=== PATIENT | female | born 1945 | race Caucasian/White ===

== ENCOUNTER 2019-07-26 14:02 | Emergency (ER) | payer MEDICARE ==
[~2019-07-26] VITALS: Ht 172.7 cm; Wt 73.4 kg
[2019-07-26] MEDS ORDERED: diphenhydrAMINE 50 mg/ml inj IV ONE (15:55)
[2019-07-26] MEDS ORDERED: normal saline 1000ml 1,000 ML IV ONE (15:55)
[2019-07-26] MEDS ORDERED: ondansetron/PF 4mg/2ml inj IV ONE (15:55)
[2019-07-26] MEDS ORDERED: metoclopramide 5 mg/ml inj IV ONE (15:55)
[2019-07-26 16:15] LABS: BASOPHILS # (AUTO) 0.1 X10'3 (0-0.2); BASOPHILS % (AUTO) 0.5 % (0-1); EOSINOPHILS % (AUTO) 0.2 % (0-6); HEMOGLOBIN 12.4 g/dl (12.0-16.0); LYMPHOCYTES # (AUTO) 0.8 X10'3 (1.1-4.8); MEAN CORPUSCULAR HEMOGLOBIN 28.2 PG (27.0-31.0); MEAN CORPUSCULAR HGB CONC 33.5 g/dL (33.0-36.5); MEAN CORPUSCULAR VOLUME 83.9 FL (78-98); MEAN PLATELET VOLUME 7.5 FL (7.4-10.4); MONOCYTES # (AUTO) 0.4 X10'3 (0-0.9); MONOCYTES % (AUTO) 3.7 % (2-12); NEUTROPHILS # (AUTO) 9.7 X10'3 (1.8-7.7); NEUTROPHILS % (AUTO) 88.6 % (42-75); PLATELET COUNT 143 X10'3 (140-440); RED BLOOD COUNT 4.41 X10'6 (4.20-5.60); RED CELL DISTRIBUTION WIDTH 14.7 % (11.5-14.5)
[2019-07-26 16:31] LABS: ALANINE AMINOTRANSFERASE 12 U/L (12-78); ALBUMIN 2.8 G/DL (3.4-5.0); ALBUMIN/GLOBULIN RATIO 0.7 (1.1-1.5); ALKALINE PHOSPHATASE 108 IU/L (46-116); ANION GAP 8 (8-16); ASPARTATE AMINO TRANSFERASE 28 U/L (10-37); BLOOD UREA NITROGEN 12 MG/DL (7-18); BUN/CREATININE RATIO 16.4 (6.6-38.0); CALCIUM 8.7 MG/DL (8.5-10.1); CHLORIDE 101 MMOL/L (99-107); CREATININE 0.73 MG/DL (0.40-0.90); GLUCOSE 131 MG/DL (70-104); LIPASE < 50 U/L (73-393); POTASSIUM 4.4 MMOL/L (3.5-5.1); SODIUM 135 MMOL/L (135-145); TOTAL CARBON DIOXIDE 25.8 MMOL/L (24-32); TOTAL PROTEIN 6.8 G/DL (6.4-8.2); eGFR 78 ML/MIN
[2019-07-26] MEDS ORDERED: ONDA4TAB6 PO (16:59)
[2019-07-26 18:03] VITALS: BP 114/58
== END 2019-07-26 17:50 | disposition home or self-care (01) ==
LOC: ER 14:03
DX: R11.2 Nausea with vomiting, unspecified (principal); G62.9 Polyneuropathy, unspecified; K21.9 Gastro-esophageal reflux disease without esophagitis; Z60.2 Problems related to living alone; Z79.899 Other long term (current) drug therapy
CPT/HCPCS: 36415; 80053; 83690; 85025; 96361; 96374; 96375; 99284; J1200; J2405; J2765; J7030

== ENCOUNTER 2019-07-29 09:03 | Emergency (ER) | payer MEDICARE ==
[~2019-07-29] VITALS: Ht 172.7 cm; Wt 80.0 kg
[~2019-07-29 09:03] MED LIST: ONDA4TAB6 PO
[2019-07-29 09:09] VITALS: BP 134/61
[2019-07-29] MEDS ORDERED: HYDR-4383 PO (20:28)
[2019-07-29] MEDS ORDERED: SENN-162 PO (20:28)
== END 2019-07-29 10:03 | disposition home or self-care (01) ==
LOC: ER 09:04
DX: R19.7 Diarrhea, unspecified (principal); R53.1 Weakness; R06.02 Shortness of breath; R11.10 Vomiting, unspecified; K21.9 Gastro-esophageal reflux disease without esophagitis; Z60.2 Problems related to living alone; Z79.899 Other long term (current) drug therapy
CPT/HCPCS: 99282

== ENCOUNTER 2019-07-29 15:55 | Emergency (ER) | payer MEDICARE ==
[~2019-07-29] VITALS: Ht 172.7 cm; Wt 80.0 kg
--- NOTE | 2019-07-29 18:35 | NUR ---
[place] AT FOR ASSESSMENT. PT HAS SWELLING TO RIGHT WRIST, AND LEFT KNEE. NO REPORTS OF HITTING HEAD. NO C/O NECK TENDERNESS. NO REPORTS OF LOC.
[2019-07-29] MEDS ORDERED: HYDROcodone/acetaminophen 5mg/325mg tablet PO ONE (19:10)
[2019-07-29] MEDS ORDERED: HYDR-4383 PO (20:28)
[2019-07-29] MEDS ORDERED: SENN-162 PO (20:28)
[2019-07-29 20:36] VITALS: BP 148/60
== END 2019-07-29 20:39 | disposition home or self-care (01) ==
LOC: ER 15:56
DX: S52.501A Unspecified fracture of the lower end of right radius, initial encounter for closed fracture (principal); G62.9 Polyneuropathy, unspecified; K21.9 Gastro-esophageal reflux disease without esophagitis; Z60.2 Problems related to living alone; Z79.899 Other long term (current) drug therapy; W10.9XXA Fall (on) (from) unspecified stairs and steps, initial encounter; Y93.E2 Activity, laundry; Y92.89 Other specified places as the place of occurrence of the external cause; Y99.8 Other external cause status
CPT/HCPCS: 29125; 29530; 73110; 73564; 73700; 99284

== ENCOUNTER 2019-08-14 18:28 | Inpatient (IN) | payer MEDICARE, OTHER ==
[~2019-08-14] VITALS: Ht 172.7 cm; Wt 70.0 kg
[~2019-08-14 18:28] MED LIST changes: +HYDR-4383 PO; +SENN-263 PO
--- NOTE | 2019-08-14 18:30 | NUR ---
Patient in room [facility]. I have received report from Nathalie INMAN and had the opportunity to ask questions and assume patient care.
[2019-08-14 19:25] LABS: BASOPHILS % (AUTO) 0.3 % (0-1); EOSINOPHILS % (AUTO) 0.2 % (0-6); HEMATOCRIT 35.6 % (35.0-45.0); HEMOGLOBIN 11.6 g/dl (12.0-16.0); LYMPHOCYTES # (AUTO) 0.9 X10'3 (1.1-4.8); LYMPHOCYTES % (AUTO) 6.4 % (21-51); MEAN CORPUSCULAR HEMOGLOBIN 27.1 PG (27.0-31.0); MEAN CORPUSCULAR HGB CONC 32.7 g/dL (33.0-36.5); MONOCYTES # (AUTO) 0.8 X10'3 (0-0.9); MONOCYTES % (AUTO) 5.9 % (2-12); NEUTROPHILS # (AUTO) 11.7 X10'3 (1.8-7.7); NEUTROPHILS % (AUTO) 87.2 % (42-75); PLATELET COUNT 135 X10'3 (140-440); RED CELL DISTRIBUTION WIDTH 16.3 % (11.5-14.5); WHITE BLOOD COUNT 13.5 X10'3 (4.5-11.0)
[2019-08-14 19:32] LABS: D-DIMER 4.16 MG/L FEU (0-0.50)
[2019-08-14 19:33] LABS: ALANINE AMINOTRANSFERASE 12 U/L (12-78); ALBUMIN 2.5 G/DL (3.4-5.0); ALBUMIN/GLOBULIN RATIO 0.6 (1.1-1.5); ALKALINE PHOSPHATASE 135 IU/L (46-116); ANION GAP 8 (8-16); ASPARTATE AMINO TRANSFERASE 63 U/L (10-37); BILIRUBIN,TOTAL 0.7 MG/DL (0.1-1.0); BLOOD UREA NITROGEN 11 MG/DL (7-18); BUN/CREATININE RATIO 11.2 (6.6-38.0); CALCIUM 8.1 MG/DL (8.5-10.1); CHLORIDE 95 MMOL/L (99-107); CREATININE 0.98 MG/DL (0.40-0.90); GLUCOSE 148 MG/DL (70-104); POTASSIUM 3.9 MMOL/L (3.5-5.1); SODIUM 129 MMOL/L (135-145); TOTAL CARBON DIOXIDE 25.7 MMOL/L (24-32); TOTAL PROTEIN 6.5 G/DL (6.4-8.2); eGFR 56 ML/MIN
[2019-08-14] MEDS ORDERED: morphine 4 MG/ML inj SYRINge IV ONE (19:35)
[2019-08-14] MEDS ORDERED: ondansetron/PF 4mg/2ml inj IV ONE (19:35)
[2019-08-14] MEDS ORDERED: normal saline 1000ML IV soln IVB ONE (19:35)
[2019-08-14] MEDS ORDERED: heparin 25,000 UNIT/250ml bag 250 ML IV SCH (19:58)
[2019-08-14] MEDS ORDERED: heparin 10,000 units/1 ML INJ IV PRN (20:00)
[2019-08-14] MEDS ORDERED: heparin 10,000 units/1 ML INJ IV ONE ×2 (20:00)
[2019-08-14] MEDS ORDERED: iohexol 350MG/ML 100ml bottle IV ONE (20:05)
--- NOTE | 2019-08-14 21:02 | NUR ---
AMADO CHINO ORDERED TO HOLD HEPARIN DUE TO CT FINDINGS
[2019-08-14] MEDS ORDERED: magnesium 2GM in 50ml NS 50 ML IV PRN (21:15)
[2019-08-14] MEDS ORDERED: acetaminophen 325mg tablet PO PRN (21:15)
[2019-08-14] MEDS ORDERED: magnesium 4gm in 100ml NS 100 ML IV PRN (21:15)
[2019-08-14] MEDS ORDERED: magnesium Cl slow-release 64mg tablet PO PRN (21:15)
[2019-08-14] MEDS ORDERED: ondansetron/PF 4mg/2ml inj IV PRN (21:15)
[2019-08-14] MEDS ORDERED: potassium Cl 20 mEq SR tablet PO PRN (21:15)
[2019-08-14] MEDS ORDERED: potassium CL 10mEq/100ml bag 100 ML IV PRN ×2 (21:15)
--- NOTE | 2019-08-14 22:00 | NUR ---
Received patient via [employer]. VSS. No complaint of pain or respiratory distress. Assisted to bathroom with 2 person assist. Assisted to bed. Will continue to monitor.
[2019-08-14] MEDS ORDERED: METF500T PO (23:20)
[2019-08-14] MEDS ORDERED: SYN0.088T PO (23:20)
[2019-08-14] MEDS ORDERED: LACT1CAP60 PO (23:20)
[2019-08-14] MEDS ORDERED: ASPI81TA52 PO (23:20)
[2019-08-14] MEDS ORDERED: CLOP75TA15 PO (23:20)
[2019-08-14] MEDS ORDERED: LISI-600 PO (23:20)
[2019-08-14] MEDS ORDERED: SERT-153 PO (23:20)
[2019-08-14] MEDS ORDERED: ATEN25TA PO (23:20)
[2019-08-14] MEDS ORDERED: CYAN1TAB41 PO (23:20)
[2019-08-14] MEDS ORDERED: ATOR40TA PO (23:20)
[2019-08-14] MEDS ORDERED: CHOL500061 PO (23:20)
[2019-08-14] MEDS: HYDROcodone/acetaminophen 5mg/325mg tablet PO PRN (23:43)
[2019-08-15] MEDS: piperacillin/tazo 3.375gm/50ml 50 ML IV SCH ×3 (00:03→17:25)
[2019-08-15] MEDS: aspirin 81mg tablet.DR PO SCH ×2 (00:13→07:59)
[2019-08-15] MEDS: sertraline 50mg tablet PO SCH ×2 (00:13→08:06)
[2019-08-15] MEDS: clopidogrel 75mg tablet PO SCH ×2 (00:13→07:59)
[2019-08-15] MEDS: morphine 2 MG/ML inj. syringe IV PRN ×3 (02:34→14:54)
[2019-08-15 05:17] LABS: ANION GAP 6 (8-16); BLOOD UREA NITROGEN 8 MG/DL (7-18); BUN/CREATININE RATIO 10.7 (6.6-38.0); CALCIUM 8.1 MG/DL (8.5-10.1); CHLORIDE 98 MMOL/L (99-107); CREATININE 0.75 MG/DL (0.40-0.90); GLUCOSE 92 MG/DL (70-104); POTASSIUM 3.5 MMOL/L (3.5-5.1); SODIUM 131 MMOL/L (135-145); TOTAL CARBON DIOXIDE 27.3 MMOL/L (24-32); eGFR 76 ML/MIN
[2019-08-15 05:18] LABS: ALBUMIN 2.1 G/DL (3.4-5.0); MAGNESIUM 1.5 MG/DL (1.5-2.4)
[2019-08-15 05:38] LABS: BASOPHILS % (AUTO) 0.2 % (0-1); EOSINOPHILS % (AUTO) 0.1 % (0-6); HEMATOCRIT 33.2 % (35.0-45.0); HEMOGLOBIN 10.9 g/dl (12.0-16.0); LYMPHOCYTES # (AUTO) 0.7 X10'3 (1.1-4.8); LYMPHOCYTES % (AUTO) 5.2 % (21-51); MEAN CORPUSCULAR HEMOGLOBIN 27.4 PG (27.0-31.0); MEAN CORPUSCULAR HGB CONC 32.8 g/dL (33.0-36.5); MEAN CORPUSCULAR VOLUME 83.4 FL (78-98); MEAN PLATELET VOLUME 8.1 FL (7.4-10.4); MONOCYTES # (AUTO) 0.6 X10'3 (0-0.9); MONOCYTES % (AUTO) 5.1 % (2-12); NEUTROPHILS # (AUTO) 11.3 X10'3 (1.8-7.7); NEUTROPHILS % (AUTO) 89.4 % (42-75); PLATELET COUNT 120 X10'3 (140-440); RED BLOOD COUNT 3.97 X10'6 (4.20-5.60); RED CELL DISTRIBUTION WIDTH 15.9 % (11.5-14.5); WHITE BLOOD COUNT 12.7 X10'3 (4.5-11.0)
[2019-08-15 05:56] LABS: HEMOGLOBIN A1C 6.1 % (4.5-6.2)
[2019-08-15] MEDS ORDERED: LEVO200T8 PO (06:13)
--- NOTE | 2019-08-15 06:44 | NUR ---
Problems reprioritized. Patient report given, questions answered & plan of care reviewed with Elda INMAN.
[2019-08-15] MEDS: atorvastatin 20mg tablet PO SCH (07:59)
[2019-08-15 08:00] VITALS: BP 143/66
[2019-08-15] MEDS: K and/or MAG REPLACEMENT MC SCH ×2 (08:00→20:00)
[2019-08-15] MEDS: docusate sod 100mg capsule PO SCH ×2 (08:00→21:35)
[2019-08-15] MEDS: lisinopril 20mg tablet PO SCH ×2 (08:07→21:37)
[2019-08-15] MEDS ORDERED: FLU VACC QS2019-20 36MOS UP/PF 60 MCG/0.5 ML SYRINGE IMVAC ONE (10:00)
[2019-08-15] MEDS: atenolol 25mg tablet PO SCH ×2 (10:23→21:37)
--- NOTE | 2019-08-15 11:19 | NUR ---
Malnutrition consult: Pt states that she has been unable to eat regularly for the past month and lost over 50 pounds per ED report. Per wt hx, pt with a pt stated wt of 176 lbs 07/28 however with a chair scaled wt of 161 lbs 07/25; current scaled wt is 154 lbs. TC to pt who reports UBW of 190 lbs and states 50 lb wt loss over the last month r/t diarrhea and vomiting after PO intake. Per H&P and ED report pt reports nausea however denies vomiting. Pt states she hasn't been eating much over the last month however has been following the BRAT diet in order to thicken up stool. Pt currently NPO and endorsing a good appetite. Pt with no significant decrease in muscle strength or edema. Pt appears well developed/well nourished per ED report. Pt currently lacks a minimum of two criteria for malnutrition. Pt denies food allergies however reports lactose intolerance, d/w dietary. Pt denies any difficulties chewing or swallowing and reports no diarrhea since admit. Will continue to follow closely and further monitor qualifying criteria for malnutrition. Addendum: 08/15/19 at [address] Amended: Links added.
[2019-08-15 12:00] VITALS: BP 122/64
[2019-08-15 18:00] VITALS: BP 120/57
--- NOTE | 2019-08-15 18:28 | NUR ---
Patient in room [facility]. I have received report from Elda INMAN and had the opportunity to ask questions and assume patient care. Patient is sleeping and receiving zosyn. Will continue to monitor.
--- NOTE | 2019-08-15 18:30 | NUR ---
Problems reprioritized. Patient report given, questions answered & plan of care reviewed with Tona INMAN.
[2019-08-15] MEDS: lactobacillus rhamnosus 10,000 MMU CELLS/CAPSULE PO SCH (21:36)
[2019-08-15] MEDS: HYDROcodone/acetaminophen 5mg/325mg tablet PO PRN (21:38)
[2019-08-15] MEDS: diatr meglu/diatrizoate 30ml oral sol.-(3 dose) bottle PO SCH (21:42)
[2019-08-16] VITALS: BP 97/50
[2019-08-16] MEDS: piperacillin/tazo 3.375gm/50ml 50 ML IV SCH ×3 (01:24→16:38)
[2019-08-16] MEDS: HYDROcodone/acetaminophen 5mg/325mg tablet PO PRN ×4 (01:24→19:50)
[2019-08-16 05:07] LABS: BASOPHILS # (AUTO) 0.1 X10'3 (0-0.2); BASOPHILS % (AUTO) 0.4 % (0-1); EOSINOPHILS % (AUTO) 0.2 % (0-6); HEMATOCRIT 32.3 % (35.0-45.0); HEMOGLOBIN 10.8 g/dl (12.0-16.0); LYMPHOCYTES % (AUTO) 6.7 % (21-51); MEAN CORPUSCULAR HEMOGLOBIN 27.5 PG (27.0-31.0); MEAN CORPUSCULAR HGB CONC 33.3 g/dL (33.0-36.5); MEAN CORPUSCULAR VOLUME 82.6 FL (78-98); MONOCYTES # (AUTO) 0.8 X10'3 (0-0.9); MONOCYTES % (AUTO) 5.2 % (2-12); NEUTROPHILS # (AUTO) 12.9 X10'3 (1.8-7.7); NEUTROPHILS % (AUTO) 87.5 % (42-75); PLATELET COUNT 140 X10'3 (140-440); RED BLOOD COUNT 3.91 X10'6 (4.20-5.60); RED CELL DISTRIBUTION WIDTH 15.9 % (11.5-14.5); WHITE BLOOD COUNT 14.8 X10'3 (4.5-11.0)
[2019-08-16 05:11] LABS: ALBUMIN 1.9 G/DL (3.4-5.0); ANION GAP 7 (8-16); BLOOD UREA NITROGEN 8 MG/DL (7-18); BUN/CREATININE RATIO 10.7 (6.6-38.0); CALCIUM 8.2 MG/DL (8.5-10.1); CHLORIDE 98 MMOL/L (99-107); CREATININE 0.75 MG/DL (0.40-0.90); GLUCOSE 118 MG/DL (70-104); MAGNESIUM 1.7 MG/DL (1.5-2.4); POTASSIUM 3.4 MMOL/L (3.5-5.1); SODIUM 133 MMOL/L (135-145); eGFR 76 ML/MIN
--- NOTE | 2019-08-16 06:14 | NUR ---
Problems reprioritized. Patient report given, questions answered & plan of care reviewed with Sedrick INMAN.
--- NOTE | 2019-08-16 06:45 | NUR ---
Patient in room [facility]. I have received report from HENNY SANTOS and had the opportunity to ask questions and assume patient care.
[2019-08-16 07:00] VITALS: BP 148/68
[2019-08-16] MEDS: atorvastatin 20mg tablet PO SCH (07:33)
[2019-08-16] MEDS: lactobacillus rhamnosus 10,000 MMU CELLS/CAPSULE PO SCH ×2 (07:33→19:48)
[2019-08-16] MEDS: docusate sod 100mg capsule PO SCH ×2 (07:33→19:48)
[2019-08-16] MEDS: sertraline 50mg tablet PO SCH (07:33)
[2019-08-16] MEDS: potassium Cl 20 mEq SR tablet PO PRN ×3 (07:36→16:54)
[2019-08-16] MEDS: lisinopril 20mg tablet PO SCH ×2 (07:36→19:48)
[2019-08-16] MEDS: diatr meglu/diatrizoate 30ml oral sol.-(3 dose) bottle PO SCH ×2 (07:37→10:43)
[2019-08-16] MEDS: atenolol 25mg tablet PO SCH ×2 (07:43→19:47)
[2019-08-16] MEDS: clopidogrel 75mg tablet PO SCH ×2 (07:47→16:54)
[2019-08-16] MEDS: aspirin 81mg tablet.DR PO SCH ×2 (07:47→16:54)
[2019-08-16] MEDS: K and/or MAG REPLACEMENT MC SCH ×2 (07:47→20:00)
--- NOTE | 2019-08-16 10:43 | NUR ---
Patient down to CT.
[2019-08-16] MEDS ORDERED: iohexol 300mg/ml 100ml inj. ONE (10:52)
--- NOTE | 2019-08-16 11:16 | NUR ---
PATIENT BACK TO ROOM 353 WITH NO COMPLAINTS.
[2019-08-16 12:05] VITALS: BP 95/50
--- NOTE | 2019-08-16 16:25 | NUR ---
SPOKE TO DR HOWARD PATIENT'S ASPIRIN AND PLAVIX WAS NOT GIVEN TODAY DUE TO POSSIBILITY OF PROCEDURE. ASKED DR HOWARD IF SHE WOULD LIKE FOR PATIENT TO HAVE ASPIRIN AND PLAVIX SHE HAS NOT HAD ASPRIIN AND PLAVIX YESTERDAY WELL AND SO FAR NO WORD IF PATIENT WILL BE HAVING PROCEDURE WITH DR COLBERT TODAY. DR. HOWARD STATED SHE WOULD "CALL DR. COLBERT TO SEE WHAT THE PLAN IS FIRST." HAVE NOT HEARD BACK FROM DR. HOWARD. DR HOWARD WAS PAGED.
--- NOTE | 2019-08-16 16:39 | NUR ---
DR HOWARD CALLED BACK AND STATED TO "TALK TO DR COLBERT" REGARDING IF PATIENT SHOULD BE GIVEN HER ASA AND PLAVIX FOR TODAY OR OK TO HOLD. DR DOWNING CALLED AND NO ANSWER.
--- NOTE | 2019-08-16 16:46 | NUR ---
DR COLBERT RETURNED CALL AND STATED OKAY TO GIVE PATIENT ASA AND PLAVIX FOR TODAY. WILL ADMINISTER.
--- NOTE | 2019-08-16 18:17 | NUR ---
Problems reprioritized. Patient report given, questions answered & plan of care reviewed with HENNY MCLAIN.
[2019-08-16 18:50] VITALS: BP 138/58
[2019-08-16] MEDS: normal saline 1000ml 1,000 ML IV SCH (20:30)
[2019-08-17] VITALS: BP 122/55
[2019-08-17] MEDS: piperacillin/tazo 3.375gm/50ml 50 ML IV SCH ×4 (00:02→23:48)
[2019-08-17] MEDS: HYDROcodone/acetaminophen 5mg/325mg tablet PO PRN ×4 (00:55→17:01)
[2019-08-17] MEDS: normal saline 1000ml 1,000 ML IV SCH ×2 (04:52→15:55)
[2019-08-17 05:27] LABS: ALBUMIN 1.8 G/DL (3.4-5.0); ANION GAP 6 (8-16); BLOOD UREA NITROGEN 6 MG/DL (7-18); BUN/CREATININE RATIO 9.5 (6.6-38.0); CALCIUM 8.1 MG/DL (8.5-10.1); CHLORIDE 102 MMOL/L (99-107); CREATININE 0.63 MG/DL (0.40-0.90); GLUCOSE 93 MG/DL (70-104); MAGNESIUM 1.7 MG/DL (1.5-2.4); SODIUM 136 MMOL/L (135-145); TOTAL CARBON DIOXIDE 27.9 MMOL/L (24-32); eGFR > 90 ML/MIN
[2019-08-17 05:28] LABS: BASOPHILS % (AUTO) 0.3 % (0-1); EOSINOPHILS % (AUTO) 0.2 % (0-6); HEMATOCRIT 32.2 % (35.0-45.0); HEMOGLOBIN 10.4 g/dl (12.0-16.0); LYMPHOCYTES # (AUTO) 0.8 X10'3 (1.1-4.8); LYMPHOCYTES % (AUTO) 5.5 % (21-51); MEAN CORPUSCULAR HEMOGLOBIN 26.9 PG (27.0-31.0); MEAN CORPUSCULAR HGB CONC 32.2 g/dL (33.0-36.5); MEAN CORPUSCULAR VOLUME 83.7 FL (78-98); MEAN PLATELET VOLUME 7.9 FL (7.4-10.4); MONOCYTES # (AUTO) 0.6 X10'3 (0-0.9); MONOCYTES % (AUTO) 3.9 % (2-12); NEUTROPHILS # (AUTO) 13.7 X10'3 (1.8-7.7); NEUTROPHILS % (AUTO) 90.1 % (42-75); PLATELET COUNT 168 X10'3 (140-440); RED BLOOD COUNT 3.84 X10'6 (4.20-5.60); RED CELL DISTRIBUTION WIDTH 16.6 % (11.5-14.5); WHITE BLOOD COUNT 15.2 X10'3 (4.5-11.0)
[2019-08-17 05:29] VITALS: BP 122/55
--- NOTE | 2019-08-17 06:35 | NUR ---
Problems reprioritized. Patient report given, questions answered & plan of care reviewed with HUEY. Addendum: 08/17/19 at 0636 by Quintin Cordero RN Amended: Links added.
[2019-08-17] MEDS: docusate sod 100mg capsule PO SCH ×2 (08:00→20:00)
[2019-08-17] MEDS: K and/or MAG REPLACEMENT MC SCH ×2 (08:00→20:00)
[2019-08-17] MEDS: lactobacillus rhamnosus 10,000 MMU CELLS/CAPSULE PO SCH (08:00)
[2019-08-17 08:40] VITALS: BP 145/72
[2019-08-17] MEDS: lisinopril 20mg tablet PO SCH ×2 (08:56→20:32)
[2019-08-17] MEDS: sertraline 50mg tablet PO SCH (08:56)
[2019-08-17] MEDS: atorvastatin 20mg tablet PO SCH (08:56)
[2019-08-17] MEDS: atenolol 25mg tablet PO SCH ×2 (09:01→20:00)
[2019-08-17 11:23] VITALS: BP 145/69
[2019-08-17] MEDS: clopidogrel 75mg tablet PO SCH (12:45)
[2019-08-17] MEDS: aspirin 81mg tablet.DR PO SCH (12:45)
[2019-08-17] MEDS ORDERED: loperamide 2mg capsule PO PRN (16:05)
--- NOTE | 2019-08-17 18:02 | NUR ---
Problems reprioritized. Patient report given, questions answered & plan of care reviewed with HENNY Calhoun.
[2019-08-17 18:50] VITALS: BP 142/59
[2019-08-17] MEDS: apixaban 5mg tablet PO SCH (20:32)
[2019-08-18] VITALS: BP 145/68
[2019-08-18] MEDS: HYDROcodone/acetaminophen 5mg/325mg tablet PO PRN ×2 (00:27→08:28)
[2019-08-18] MEDS: normal saline 1000ml 1,000 ML IV SCH ×2 (00:30→12:34)
[2019-08-18 05:53] LABS: BASOPHILS % (AUTO) 0.3 % (0-1); EOSINOPHILS % (AUTO) 0.3 % (0-6); HEMATOCRIT 31.9 % (35.0-45.0); HEMOGLOBIN 10.3 g/dl (12.0-16.0); LYMPHOCYTES # (AUTO) 0.8 X10'3 (1.1-4.8); LYMPHOCYTES % (AUTO) 6.2 % (21-51); MEAN CORPUSCULAR HEMOGLOBIN 27.3 PG (27.0-31.0); MEAN CORPUSCULAR HGB CONC 32.1 g/dL (33.0-36.5); MEAN CORPUSCULAR VOLUME 84.8 FL (78-98); MEAN PLATELET VOLUME 7.5 FL (7.4-10.4); MONOCYTES # (AUTO) 0.5 X10'3 (0-0.9); MONOCYTES % (AUTO) 3.5 % (2-12); NEUTROPHILS # (AUTO) 12.2 X10'3 (1.8-7.7); NEUTROPHILS % (AUTO) 89.7 % (42-75); PLATELET COUNT 202 X10'3 (140-440); RED BLOOD COUNT 3.76 X10'6 (4.20-5.60); RED CELL DISTRIBUTION WIDTH 16.1 % (11.5-14.5); WHITE BLOOD COUNT 13.6 X10'3 (4.5-11.0)
[2019-08-18 05:55] LABS: ALBUMIN 1.7 G/DL (3.4-5.0); ANION GAP 6 (8-16); BLOOD UREA NITROGEN 6 MG/DL (7-18); BUN/CREATININE RATIO 10.2 (6.6-38.0); CALCIUM 7.9 MG/DL (8.5-10.1); CHLORIDE 104 MMOL/L (99-107); CREATININE 0.59 MG/DL (0.40-0.90); GLUCOSE 85 MG/DL (70-104); MAGNESIUM 1.7 MG/DL (1.5-2.4); SODIUM 137 MMOL/L (135-145); TOTAL CARBON DIOXIDE 27.1 MMOL/L (24-32); eGFR > 90 ML/MIN
--- NOTE | 2019-08-18 06:30 | NUR ---
Problems reprioritized. Patient report given, questions answered & plan of care reviewed with HUEY. Addendum: 08/18/19 at 0631 by Quintin Cordero RN Amended: Links added.
[2019-08-18 08:00] VITALS: BP 137/99
[2019-08-18] MEDS: K and/or MAG REPLACEMENT MC SCH (08:00)
[2019-08-18] MEDS: docusate sod 100mg capsule PO SCH (08:00)
[2019-08-18] MEDS: atorvastatin 20mg tablet PO SCH (08:28)
[2019-08-18] MEDS: apixaban 5mg tablet PO SCH (08:28)
[2019-08-18] MEDS: sertraline 50mg tablet PO SCH (08:28)
[2019-08-18] MEDS: aspirin 81mg tablet.DR PO SCH (08:28)
[2019-08-18] MEDS: clopidogrel 75mg tablet PO SCH (08:29)
[2019-08-18] MEDS: lisinopril 20mg tablet PO SCH (08:29)
[2019-08-18] MEDS: piperacillin/tazo 3.375gm/50ml 50 ML IV SCH (08:30)
[2019-08-18] MEDS: atenolol 25mg tablet PO SCH (08:40)
[2019-08-18] MEDS ORDERED: diphenoxylate/atropine tablet (Lomotil) PO PRN (09:40)
[2019-08-18] MEDS ORDERED: APIX5TAB3 PO (11:52)
[2019-08-18] MEDS ORDERED: AMOX-580 PO (11:52)
[2019-08-18] MEDS ORDERED: TOLT4CAP PO (11:52)
[2019-08-18] MEDS ORDERED: DIPH-186 PO ×2 (11:52→11:54)
[2019-08-18 12:00] VITALS: BP 140/65
[2019-08-18] MEDS ORDERED: HYDR-3972 PO (12:54)
== END 2019-08-18 14:05 | disposition home or self-care (01) | DRG 814 ==
LOC: ER 18:29 → ED HOLD 21:12 → UNDOADMIN 21:29 → ED HOLD 21:29 → SUR 3N 22:10
PROVIDERS: ADMIT Internal Medicine; ATTEND Family Medicine
PROC: B32T1ZZ Computerized Tomography (CT Scan) of Left Pulmonary Artery using Low Osmolar Contrast (ICD-10-PCS; principal; 2019-08-14)
PROC: BW211ZZ Computerized Tomography (CT Scan) of Abdomen and Pelvis using Low Osmolar Contrast (ICD-10-PCS; 2019-08-16)
DX: D73.5 Infarction of spleen (principal); I21.A1 Myocardial infarction type 2; I82.890 Acute embolism and thrombosis of other specified veins; D73.89 Other diseases of spleen; R91.1 Solitary pulmonary nodule; E11.42 Type 2 diabetes mellitus with diabetic polyneuropathy; I10 Essential (primary) hypertension; D69.6 Thrombocytopenia, unspecified; E78.5 Hyperlipidemia, unspecified; E89.0 Postprocedural hypothyroidism; F32.9 Major depressive disorder, single episode, unspecified; R32 Unspecified urinary incontinence; I25.2 Old myocardial infarction; Z79.02 Long term (current) use of antithrombotics/antiplatelets; Z79.82 Long term (current) use of aspirin; Z79.84 Long term (current) use of oral hypoglycemic drugs; Z86.73 Personal history of transient ischemic attack (TIA), and cerebral infarction without residual deficits; Z87.891 Personal history of nicotine dependence; Z95.2 Presence of prosthetic heart valve
CPT/HCPCS: 36415; 71045; 71275; 74176; 74177; 80048; 80053; 82948; 83036; 83735; 83880; 84145; 84484; 85025; 85379; 85610; 85651; 85730; 86140; 87081; 93005; 99285; G0378; J2270; J2405; J2543; J7030; Q2037; Q9963; Q9967

== ENCOUNTER 2019-08-19 20:07 | Emergency (ER) | payer MEDICARE, OTHER ==
[~2019-08-19] VITALS: Ht 172.7 cm; Wt 69.4 kg
[~2019-08-19 20:07] MED LIST changes: +AMOX-580 PO; +APIX5TAB3 PO; +ASPI81TA52 PO; +ATEN25TA PO; +ATOR40TA PO; +CHOL500061 PO; +CLOP75TA15 PO; +CYAN1TAB41 PO; +DIPH-186 PO; +HYDR-3972 PO; -HYDR-4383 PO; +LACT1CAP60 PO; +LEVO200T8 PO; +LISI-600 PO; +METF500T PO; -ONDA4TAB6 PO; -SENN-263 PO; +SERT-153 PO; +TOLT4CAP PO
[2019-08-19] MEDS ORDERED: ondansetron/PF 4mg/2ml inj IV ONE (20:55)
[2019-08-19] MEDS ORDERED: HUM PROTHROMBIN CPLX(PCC)4FACT 1,000 UNIT VIAL IV ONE (21:05)
--- NOTE | 2019-08-19 21:10 | NUR ---
CALL TO PHARMACY FOR KCENTRA (SEE EMAR). PHARMACY TO PREPARE.
[2019-08-19] MEDS ORDERED: HUM PROTHROMBIN CPLX(PCC)4FACT 2,000 UNIT IV ONE (21:20)
[2019-08-19 21:21] LABS: BASOPHILS % (AUTO) 0.1 % (0-1); EOSINOPHILS % (AUTO) 0.2 % (0-6); HEMATOCRIT 34.8 % (35.0-45.0); HEMOGLOBIN 11.2 g/dl (12.0-16.0); LYMPHOCYTES # (AUTO) 0.7 X10'3 (1.1-4.8); LYMPHOCYTES % (AUTO) 5.1 % (21-51); MEAN CORPUSCULAR HEMOGLOBIN 26.8 PG (27.0-31.0); MEAN CORPUSCULAR HGB CONC 32.1 g/dL (33.0-36.5); MEAN CORPUSCULAR VOLUME 83.5 FL (78-98); MEAN PLATELET VOLUME 7.2 FL (7.4-10.4); MONOCYTES # (AUTO) 0.5 X10'3 (0-0.9); MONOCYTES % (AUTO) 3.4 % (2-12); NEUTROPHILS # (AUTO) 12.6 X10'3 (1.8-7.7); NEUTROPHILS % (AUTO) 91.2 % (42-75); PLATELET COUNT 267 X10'3 (140-440); RED BLOOD COUNT 4.17 X10'6 (4.20-5.60); RED CELL DISTRIBUTION WIDTH 16.5 % (11.5-14.5); WHITE BLOOD COUNT 13.9 X10'3 (4.5-11.0)
[2019-08-19 21:25] LABS: PARTIAL THROMBOPLASTIN TIME 28 SECONDS (22-32)
[2019-08-19 21:30] LABS: ALANINE AMINOTRANSFERASE 10 U/L (12-78); ALBUMIN/GLOBULIN RATIO 0.4 (1.1-1.5); ALKALINE PHOSPHATASE 150 IU/L (46-116); ANION GAP 6 (8-16); ASPARTATE AMINO TRANSFERASE 33 U/L (10-37); BILIRUBIN,TOTAL 0.5 MG/DL (0.1-1.0); BLOOD UREA NITROGEN 8 MG/DL (7-18); BUN/CREATININE RATIO 11.3 (6.6-38.0); CALCIUM 8.2 MG/DL (8.5-10.1); CHLORIDE 102 MMOL/L (99-107); CREATININE 0.71 MG/DL (0.40-0.90); GLUCOSE 113 MG/DL (70-104); SODIUM 136 MMOL/L (135-145); TOTAL CARBON DIOXIDE 27.6 MMOL/L (24-32); TOTAL PROTEIN 6.6 G/DL (6.4-8.2); eGFR 81 ML/MIN
[2019-08-19 21:38] LABS: POTASSIUM 4.1 MMOL/L (3.5-5.1)
--- NOTE | 2019-08-19 21:48 | NUR ---
CALL TO [facility]AN[facility] AT [facility] ER AT THIS TIME, ALL QUESTIONS AND CONCERNS ADDRESSED. REPORT GIVEN TO FAMILY PRACTICE DOCTOR AT BEDSIDE.
[2019-08-19 21:49] VITALS: BP 138/70
== END 2019-08-19 21:52 | disposition short-term general hospital (02) ==
LOC: ER 20:08
DX: S06.6X0A Traumatic subarachnoid hemorrhage without loss of consciousness, initial encounter (principal); S00.03XA Contusion of scalp, initial encounter; D68.9 Coagulation defect, unspecified; E11.42 Type 2 diabetes mellitus with diabetic polyneuropathy; I10 Essential (primary) hypertension; K21.9 Gastro-esophageal reflux disease without esophagitis; E03.9 Hypothyroidism, unspecified; Z86.73 Personal history of transient ischemic attack (TIA), and cerebral infarction without residual deficits; Z79.01 Long term (current) use of anticoagulants; Z98.890 Other specified postprocedural states; Z79.82 Long term (current) use of aspirin; Z79.899 Other long term (current) drug therapy; W10.8XXA Fall (on) (from) other stairs and steps, initial encounter; Y93.89 Activity, other specified; Y92.89 Other specified places as the place of occurrence of the external cause; Y99.9 Unspecified external cause status
CPT/HCPCS: 70450; 80053; 85025; 85610; 85730; 96374; 96375; 99285; C9132; J2405